=== PATIENT | male | born 1960 | race Caucasian/White ===

== ENCOUNTER 2021-06-17 17:45 | Emergency (ER) | payer OTHER, SELFPAY ==
[2021-06-17 18:11] VITALS: BP 200/133; PULSE 72; RESP 18; TEMP 36.9; O2SAT 99; BMI 25.7
[2021-06-17 21:10] VITALS: BP 189/124; PULSE 74; RESP 16; TEMP 36.8; O2SAT 100
--- NOTE | 2021-06-17 21:20 | ECG_ITS ---
Test Reason : HTN Blood Pressure : / mmHG Vent. Rate : 070 BPM Atrial Rate : 070 BPM P-R Int : 174 ms QRS Dur : 086 ms QT Int : 386 ms P-R-T Axes : 062 006 024 degrees QTc Int : 416 ms Normal sinus rhythm Normal ECG No previous ECGs available Referred By: Lucina Vale Electronically Signed By:NANDINI REED MD
--- NOTE | 2021-06-17 21:21 | ED.RECABL ---
HPI - Recheck/Abnormal Lab/Rx General Chief Complaint: Recheck/Abnormal Lab/Rx Stated Complaint: High blood pressure Time Seen by Provider: 06/17/21 21:20 Source: patient Mode of arrival: ambulatory History of Present Illness HPI narrative: Is a 61-year-old male who is a 3-4 day a week drinker of alcohol, denies cigarette use who was being seen at [facility] for underlying knee and ankle issues (previously diagnosed with gout) and at that time had his blood pressure taken and he was found to be hypertensive. He states that the healthcare worker there ?scared him? and he proceeded immediately to the emergency room as instructed. Patient denies any prior knowledge of his high blood pressure and is not on any prescription medications and denies ever having experience dizziness, headache, visual blurriness/double vision, shortness of breath/chest pain/palpitations. He also denies any swelling in either lower extremity other than his underlying joint condition. He does state that he is currently on indomethacin for his right ankle swelling. Patient denies COVID-19 vaccination. Related Data Allergies Allergy/AdvReac Type Severity Reaction Status Date / Time Penicillins Allergy Mild UNKNOWN Verified 06/17/21 18:11 penicillin V Allergy Unknown Unknown Verified 06/17/21 18:11 Review of Systems Review of Systems: Pertinent positives and negatives as stated in HPI and 10 point review of systems is otherwise negative. [facility] Past Medical History Source: nursing notes reviewed Social History Social History Advance Directives: No Advance Directives Information Provided: No Physical Exam Vital Signs: Vital Signs: Last Vital Signs Temp 98.2 F 06/17/21 22:26 Pulse 73 06/17/21 22:26 Resp 20 06/17/21 22:26 BP 112/52 L 06/17/21 22:26 Pulse Ox 100 06/17/21 22:26 BMI result Body Mass Index 25.7 VITAL SIGNS: Reviewed. GENERAL: Well developed, well nourished, in no acute distress. HEAD: Normocephalic/atraumatic EYES: PERRLA, EOMI intact without pain, no nystagmus OROPHARYNX: no oral lesions noted, posterior pharynx clear LUNGS: Normal breath sounds. No adventitious sounds or accessory muscle use. SpO2<100> CARDIOVASCULAR: Regular rate and rhythm without noted murmurs, no JVD or lower extremity edema. ABDOMEN: Soft, non-tender, non-distended with bowel sounds. MUSCULOSKELETAL: No tenderness/deformities, left knee effusion noted on gross inspection. EXTREMITIES: No cyanosis, clubbing or edema. SKIN: Inspection of the skin reveals no rashes NEUROLOGIC: Alert and oriented x 4. Strength and sensation to light touch were grossly intact x 4, otherwise nonfocal Course Course Course Narrative: This is a 61-year-old male with history and clinical presentation consistent with incidental finding of hypertension that is otherwise asymptomatic. Patient also plans to leave for [facility] and stay down there for 4 months and states he does not have a current primary care provider. Patient will be evaluated for immediate reversible causes for his current hypertension, but it is also felt to be contributed to by his alcohol use as well as indomethacin. Review of all investigations otherwise negative for acute findings. All results discussed with the patient at bedside and he was strongly encouraged to follow-up with his primary care provider in the next 2-3 days. MDM - Recheck/Abnormal Lab/Rx Lab Data Result diagrams: 06/17/21 22:12 06/17/21 22:11 Labs: Lab Results 06/17/21 06/17/21 06/17/21 Range/Units 22:06 22:11 22:12 WBC 7.6 (4.8-10.8) X10*3/uL RBC 4.98 (4.60-5.80) X10*6/uL Hgb 16.1 (14.0-18.0) g/dl Hct 45.4 (42.0-52.0) % MCV 91.2 (80.0-98.0) fL MCH 32.3 (27.0-33.0) pg MCHC 35.5 (31.0-36.0) g/dl RDW 12.5 (11.0-16.0) % Plt Count 192 (160-400) X10*3/uL MPV 9.9 (9.4-12.4) fL Immature Gran % (Auto) 0.4 (0.0-0.4) % Neut % (Auto) 69.3 (45-73) % Lymph % (Auto) 20.2 (20-40) % Woodward % (Auto) 8.2 (2-11) % Eos % (Auto) 1.5 (0-4) % Baso % (Auto) 0.4 (0-2) % Lymph # (Auto) 1.5 (1.2-4.9) X10*3/uL Woodward # (Auto) 0.6 (0.1-1.2) X10*3/uL Eos # (Auto) 0.1 (0.0-0.4) X10*3/uL Baso # (Auto) 0.0 (0.0-0.2) X10*3/uL Abs Immat Gran (auto) 0.03 (0.00-0.03) X10*3/uL Absolute Neuts (auto) 5.3 (2.0-8.3) x10*3/uL Absolute Nucleated RBC 0.000 (0.0-0.012) X10*3/uL Nucleated RBC % (auto) 0.0 (0.0-0.2) /100WBC Sodium 142 (135-145) mmol/L Potassium 4.4 (3.3-5.1) mmol/L Chloride 106 (96-108) mmol/L Carbon Dioxide 27 (22-29) mmol/L Anion Gap 13 (12-20) BUN 19 H (9-16) mg/dL Creatinine 0.94 (0.5-1.4) mg/dL Estim Creat Clear Calc 69.9 Estimated GFR > 60 Random Glucose 97 (60-115) mg/dL Calcium 9.7 (8.4-10.2) mg/dL Total Bilirubin 0.8 (0.0-1.0) mg/dL AST 30 (5-37) U/L ALT 67 H (0-40) U/L Alkaline Phosphatase 95 (39-117) U/L Total Protein 7.2 (6.5-8.0) g/dL Albumin 4.6 (3.5-5.0) g/dL TSH 3.35 (0.32-4.0) uIU/mL Urine Color YELLOW Urine Appearance CLEAR Urine pH 6.0 (5.0-8.0) Ur Specific Rumson >= 1.030 H (1.005-1.025) Urine Protein NEG (NEG-TRACE) MG/DL Urine Glucose (UA) NEG (NEG) MG/DL Urine Ketones NEG (NEG) MG/DL Urine Blood NEG (NEG) Urine Nitrite NEG (NEG) Ur Leukocyte Esterase NEG (NEG) ECG Data Attestation: I personally reviewed and interpreted this ECG as follows: Prior ECG tracings: not available for review Interpretation: Normal sinus rhythm, HR -70, no STEMI, OK/QRS/QTC are within normal limits. Discharge Plan Discharge Clinical Impression: Hypertension Patient Disposition: Home, Self-Care Instructions: Hypertension (ED), DASH Eating Plan (ED), Hypertension in the Older Adult (ED), Low-Sodium Diet (ED) Additional Instructions: Decrease alcohol intake as well as lowering salt intake. Set up a primary care provider at your earliest convenience. Return to the ER for worsening symptoms.
[2021-06-17] MEDS: hydroCHLOROthiazide 25 MG TABLET PO (21:45)
[2021-06-17 22:18] LABS: Basophils Percent Auto 0.4 % (0-2); Eosinophils Absolute Auto 0.1 X10*3/uL (0.0-0.4); Eosinophils Percent Auto 1.5 % (0-4); Hematocrit 45.4 % (42.0-52.0); Hemoglobin 16.1 g/dl (14.0-18.0); Imm Gran Abs Auto 0.03 X10*3/uL (0.00-0.03); Imm Gran Pct Auto 0.4 % (0.0-0.4); Lymphocytes Absolute Auto 1.5 X10*3/uL (1.2-4.9); Lymphocytes Percent Auto 20.2 % (20-40); MANUAL DIFF FLAG NO; Mean Corpuscular HGB Conc 35.5 g/dl (31.0-36.0); Mean Corpuscular Hemoglobin 32.3 pg (27.0-33.0); Mean Corpuscular Volume 91.2 fL (80.0-98.0); Mean Platelet Volume 9.9 fL (9.4-12.4); Monocytes Absolute Auto 0.6 X10*3/uL (0.1-1.2); Monocytes Percent Auto 8.2 % (2-11); Neutrophils Absolute Auto 5.3 x10*3/uL (2.0-8.3); Neutrophils Percent Auto 69.3 % (45-73); Platelet Count 192 X10*3/uL (160-400); Red Blood Count 4.98 X10*6/uL (4.60-5.80); Red Cell Distribution Width 12.5 % (11.0-16.0); White Blood Count 7.6 X10*3/uL (4.8-10.8)
[2021-06-17 22:26] VITALS: BP 112/52; PULSE 73; RESP 20; TEMP 36.8; O2SAT 100
[2021-06-17 22:29] LABS: Appearance Urine CLEAR; Color Urine YELLOW; Glucose Urine UA NEG (NEG); Leukocyte Esterase Urine NEG (NEG); Nitrite Urine NEG (NEG); Specific Gravity - Urine >= 1.030 (1.005-1.025); Urine Blood NEG (NEG); Urine Ketones NEG (NEG); Urine Protein NEG (NEG-TRACE)
[2021-06-17 22:48] LABS: Alanine Aminotransferase 67 U/L (0-40); Albumin Level 4.6 g/dL (3.5-5.0); Alkaline Phosphatase 95 U/L (39-117); Anion Gap 13 (12-20); Aspartate Amino Transferase 30 U/L (5-37); Bilirubin Total 0.8 mg/dL (0.0-1.0); Blood Urea Nitrogen 19 mg/dL (9-16); Calcium 9.7 mg/dL (8.4-10.2); Carbon Dioxide 27 mmol/L (22-29); Chloride 106 mmol/L (96-108); Creatinine Clr Calc Pharmacy 69.9; Estimated Glomerular Filt Rate > 60; Glucose Random 97 mg/dL (60-115); Potassium 4.4 mmol/L (3.3-5.1); Sodium 142 mmol/L (135-145); Total Protein 7.2 g/dL (6.5-8.0)
[2021-06-17 22:58] LABS: Thyroid Stimulating Hormone 3.35 uIU/mL (0.32-4.0)
--- NOTE | 2021-06-17 23:20 | PC.NURSE ---
PREVIOUSLY DOCUMENTED BLOOD PRESSURE BY ED WAS CHARTED IN ERROR. PATIENT BLOOD PRESSURE ON RECHECK BY THIS RN IS 204/121. PROVIDER AT BEDSIDE AND ORDERS FOR ADDISIONAL MEDICATION FOR HYPERTENSION THAT HAS PERSISTED.
[2021-06-17 23:22] VITALS: BP 204/121; PULSE 67; RESP 16; O2SAT 100
[2021-06-17] MEDS: hydrALAZINE HCl 10 MG TABLET 5 MG PO (23:27)
[2021-06-17 23:29] VITALS: BP 177/110; PULSE 669; RESP 16; O2SAT 100
== END 2021-06-17 23:29 | disposition home or self-care (01) ==
PROVIDERS: Emergency Provider Student in an Organized Health Care Education/Training Program
DX: I10 Essential (primary) hypertension (principal)
CPT/HCPCS: 36415; 80053; 81003; 84443; 85025; 93005; 99283; 99284

== ENCOUNTER 2022-08-16 12:18 | Outpatient (REF) | payer OTHER, SELFPAY ==
[2022-08-16 14:57] LABS: Cholesterol 239 mg/dL; HDL Cholesterol 56 mg/dL; LDL Cholesterol Calculated 163 mg/dl; Triglycerides 100 mg/dL; Uric Acid 8.4 mg/dL (3.4-7.0)
== END 2022-08-16 12:19 | disposition home or self-care (01) ==
LOC: HO.10HDL 12:18
PROVIDERS: Visit Provider Internal Medicine
DX: Z00.00 Encounter for general adult medical examination without abnormal findings (principal); Z20.2 Contact with and (suspected) exposure to infections with a predominantly sexual mode of transmission
CPT/HCPCS: 36415; 80061; 84550

== ENCOUNTER 2023-11-14 11:08 | Outpatient (REF) | payer OTHER, SELFPAY ==
--- NOTE | ~2023-11-14 | XR_ITS ---
EXAMINATION: XR ANKLE, LEFT CLINICAL INFORMATION: Gout. OA. COMPARISON: Left foot films dated 11/15/2016. TECHNIQUE: AP, lateral, and mortise views of the left ankle. FINDINGS: Mild bimalleolar soft tissue swelling, more prominent on the lateral aspect in the medial aspect. No underlying acute fracture or dislocation. Small ankle joint effusion is suspected. The ankle mortise is symmetric and intact. No joint or soft tissue calcifications seen. Minimal spurring in the tibiotalar joint. XR/XR ankle LT min 3V IMPRESSION: * Mild bimalleolar soft tissue swelling and small ankle joint effusion. * No acute fracture or dislocation. * No evidence of erosive arthropathy. Minimal degenerative change in the medial tibiotalar joint.
[2023-11-14 13:14] LABS: MANUAL DIFF FLAG NO
[2023-11-14 13:39] LABS: Basophils Percent Auto 0.8 % (0-2); Eosinophils Absolute Auto 0.1 X10*3/uL (0.0-0.4); Eosinophils Percent Auto 2.5 % (0-4); Hemoglobin 14.5 g/dl (14.0-18.0); Imm Gran Abs Auto 0.02 X10*3/uL (0.00-0.03); Imm Gran Pct Auto 0.4 % (0.0-0.4); Lymphocytes Absolute Auto 1.1 X10*3/uL (1.2-4.9); Lymphocytes Percent Auto 23.8 % (20-40); Mean Corpuscular HGB Conc 35.4 g/dl (31.0-36.0); Mean Corpuscular Hemoglobin 31.5 pg (27.0-33.0); Mean Corpuscular Volume 88.9 fL (80.0-98.0); Mean Platelet Volume 10.7 fL (9.4-12.4); Monocytes Absolute Auto 0.5 X10*3/uL (0.1-1.2); Neutrophils Absolute Auto 2.9 x10*3/uL (2.0-8.3); Neutrophils Percent Auto 61.5 % (45-73); Platelet Count 286 X10*3/uL (160-400); Red Blood Count 4.61 X10*6/uL (4.60-5.80); Red Cell Distribution Width 12.8 % (11.0-16.0); White Blood Count 4.7 X10*3/uL (4.8-10.8)
[2023-11-14 14:01] LABS: Alanine Aminotransferase 28 U/L (0-40); Albumin Level 4.6 g/dL (3.5-5.0); Alkaline Phosphatase 97 U/L (39-117); Anion Gap 15 (12-20); Aspartate Amino Transferase 18 U/L (5-37); Bilirubin Total 0.7 mg/dL (0.0-1.0); Blood Urea Nitrogen 16 mg/dL (9-16); Calcium 9.9 mg/dL (8.4-10.2); Carbon Dioxide 22 mmol/L (22-29); Chloride 107 mmol/L (96-108); Cholesterol 186 mg/dL (<200); Estimated Glomerular Filt Rate > 60; Glucose Fasting 99 mg/dL (60-99); HDL Cholesterol 48 mg/dL (>40); LDL Cholesterol Calculated 116 mg/dL (<100); Potassium 4.3 mmol/L (3.3-5.1); Sodium 140 mmol/L (135-145); Triglycerides 111 mg/dL (<150)
[2023-11-14 14:19] LABS: Uric Acid 6.9 mg/dL (3.4-7.0)
[2023-11-14 14:25] LABS: Erythrocyte Sedimentation Rate 12 MM/HR (0-15)
== END 2023-11-14 11:09 | disposition home or self-care (01) ==
LOC: HO.10HDL 11:08
PROVIDERS: Visit Provider Internal Medicine
DX: I10 Essential (primary) hypertension (principal); E78.00 Pure hypercholesterolemia, unspecified; M10.9 Gout, unspecified; R60.0 Localized edema
CPT/HCPCS: 36415; 73610; 80053; 80061; 84550; 85025; 85652; 86140

== ENCOUNTER 2024-05-07 14:18 | Outpatient (REF) | payer OTHER, SELFPAY ==
--- NOTE | ~2024-05-07 | XR_ITS ---
EXAMINATION: XR CERVICAL SPINE CLINICAL INFORMATION: NECK PAIN COMPARISON: None available. TECHNIQUE: 5 views of cervical spine FINDINGS: No fracture. No subluxation. No focal bone lesion or bone destruction. Multilevel degenerative spondylosis of the spine. Multilevel disc height narrowing, endplate spurring and facet joint arthrosis. There is mild narrowing of the left neural foramina at C4-C5 and on the right at C3-C4 by facet joint spurring. Posterior spurs slightly encroaching into the right neural foramina C5-C6. XR/XR cervical spine 5V IMPRESSION: 1. No acute abnormality. 2. Multilevel degenerative spondylosis of the spine. 3. Mild narrowing of the neural foramina at C3-C4, C4-C5 and C5-C6. Electronically signed by: Charles Diaz MD 05/08/2024 05:40 PM [facility] ALBRIGHT
[2024-05-07 15:59] LABS: Alanine Aminotransferase 48 U/L (0-40); Albumin Level 4.7 g/dL (3.5-5.0); Alkaline Phosphatase 106 U/L (39-117); Anion Gap 12 (12-20); Aspartate Amino Transferase 24 U/L (5-37); Bilirubin Total 0.6 mg/dL (0.0-1.0); Blood Urea Nitrogen 18 mg/dL (9-16); C Reactive Protein 0.33 mg/dL (< or = 0.50); Calcium 9.8 mg/dL (8.4-10.2); Carbon Dioxide 26 mmol/L (22-29); Chloride 104 mmol/L (96-108); Estimated Glomerular Filt Rate > 60; Glucose Random 92 mg/dL (60-115); Potassium 4.4 mmol/L (3.3-5.1); Sodium 138 mmol/L (135-145); Uric Acid 6.7 mg/dL (3.4-7.0)
[2024-05-07 16:05] LABS: Prostate Specific Antigen 0.51 ng/mL (<0.05-4.0)
== END 2024-05-07 14:19 | disposition home or self-care (01) ==
LOC: HO.LAB 14:18
PROVIDERS: PCP Internal Medicine; Visit Provider Internal Medicine
DX: M54.2 Cervicalgia (principal); E78.00 Pure hypercholesterolemia, unspecified; Z12.5 Encounter for screening for malignant neoplasm of prostate; M10.9 Gout, unspecified
CPT/HCPCS: 36415; 72050; 80053; 82550; 84153; 84550; 86140

== ENCOUNTER 2025-03-31 15:27 | Outpatient (AMB) | payer OTHER, MEDICARE, SELFPAY ==
--- OUTSIDE RECORDS SUMMARY | 2021-05-19 14:50 | XMS_ITS | Encounter Summary ---
Author Organization [facility] Address [address] [place] [address] Phone Care Team Providers Care General Administrator Name Role Phone Pcp, Unknown Primary Care Provider Unavailabl e Encounter Details Date Type Department Care Team (Late st Contact Info) Description 05/19/2021 1:50 PM EST Hospital Encounter [facility] [address] [place] [id number] May Harrell CNP [address] [place] [address] Social History Tobacco Use Types Packs/Day Years Used Date Smoking Tobacco: Never Smokeless Tobacco: Never Alcohol Use Standard Drinks/Week Comments Yes 0 (1 standard drink = 0.6 oz pur e alcohol) 8-10 Education Answer Date Recorded Are you interested in more education? Not on karen e 10/08/2022 Are you concerned about learning? Not on file 10/08/2022 No 10/08/2022 No 10/08/2022 Digital Access Answer Date Recorded No 11/05/2022 No 11/05/2022 No 11/05/2022 Reliable internet access at home? Not on file 11/05/2022 Device with a working camera? Not on file Sex and Gender Information Value Date Recorded Sex Assigned at Not on file Legal Sex Male 1:27 PM EST Gender Identity Not on file Sexual Orientation Not on file documented as of this encounter Plan of Treatment Not on file documented as of this encounter Procedures Procedure Name Priority Date/Time Associated Diagnosis Comments XR ANKLE 3 OR MORE VIEWS (RIGHT) Urgent/patient waiting 05/19/2021 1:58 PM EST Pain and swelling of right ankle documented in this encounter Results * XR ANKLE 3 OR MORE VIEWS (RIGHT) (05/19/2021 1:58 PM EST) Anatomical Region Laterality Modality Ankle Right Computed Radiogr aphy 05/19/2021 2:01 PM EST Impressions 05/19/2021 2:03 PM EST Diffuse soft tissue swelling as above, greater laterally. No acute displaced fracture or dislocation. Narrative 05/19/2021 2:03 PM EST XR ANKLE 3 OR MORE VIEWS (RIGHT) COMPARISON: None. FINDINGS: There is mild diffuse soft tissue swelling about the ankle, tracking down the hindfoot, greater laterally. Ankle mortise is maintained. No acute displaced fracture seen. No ankle effusion. Preserved alignment. Tiny calcaneal spurs. Procedure Note Talia Granados MD - 05/19/2021 XR ANKLE 3 OR MORE VIEWS (RIGHT) COMPARISON: None. FINDINGS: There is mild diffuse soft tissue swelling about the ankle, tracking downthe hindfoot, greater laterally. Ankle mortise is maintained. No acutedisplaced fracture seen. No ankle effusion. Preserved alignment. Tinycalcaneal spurs. IMPRESSION: Diffuse soft tissue swelling as above, greater laterally. No acutedisplaced fracture or dislocation. May Harrell LOT BOSS IMG XR LOWER EXTREMITY Gilda l Result documented in this encounter Visit Diagnoses Not on filedocumented in this encounter Care Teams General Administrator Relationship Specialty Start Date End Date Pcp, Unknown PCP - General 05/19/21 documented as of this encounter Additional Source Comments The information contained in this document represents components of the legal health record. It is not the complete legal health record.[facility]
--- OUTSIDE RECORDS SUMMARY | 2021-06-18 15:13 | XMS_ITS | Encounter Summary ---
Author Organization [facility] Address [address] [place] [address] Phone Care Team Providers Care Medical Records Secretary Name Role Phone Pcp, Unknown Primary Care Provider Unavailabl e Encounter Details Date Type Department Care Team (Late st Contact Info) Description 06/18/2021 2:13 PM EST Hospital Encounter [facility] [address] [place] [phone] Molly Jenkins FNP [address] [place] [address] [email or web address] Social History Tobacco Use Types Packs/Day Years [...] Name Priority Date/Time Associated Diagnosis Comments XR KNEE 4 OR MORE VIEWS (LEFT) Urgent/patient waiting 06/18/2021 2:23 PM EST Knee effusion, left documented in this encounter Results * XR KNEE 4 OR MORE VIEWS (LEFT) (06/18/2021 2:23 PM EST) Anatomical Region Laterality Modality Knee Left Computed Radiogr aphy 06/18/2021 2:27 PM EST Impressions 06/18/2021 2:29 PM EST No fracture or dislocation. Moderate suprapatellar knee effusion. Narrative 06/18/2021 2:29 PM EST XR KNEE 4 OR MORE VIEWS (LEFT) Procedure Note Ousmane Wilson MD, PhD - 06/18/2021 XR KNEE 4 OR MORE VIEWS (LEFT) IMPRESSION: No fracture or dislocation. Moderate suprapatellar knee effusion. us Molly Jenkins WANT AD SUPERVISOR IMG XR LOWER EXTREMITY Gilda l Result documented in this encounter Visit Diagnoses Not on filedocumented in this encounter Care Teams Medical Records Secretary Relationship Specialty Start Date End Date Pcp, Unknown PCP - General 05/19/21 documented as of this encounter Additional Source Comments The information contained in this document represents components of the legal health record. It is not the complete legal health record.[facility]
--- NOTE | 2025-03-31 14:02 | A.OFFPC_ITS ---
Vital Signs 03/31/25 15:51 03/31/25 16:04 Height 5 ft 3.27 in Weight 70.307 kg BMI 27.2 BP 146/80 H 136/80 Blood Pressure Location Lt brachial Position Sitting Respiration 18 Pulse 86 Pulse Source Pulse Oximeter Temp 98.9 F Temp Source Temporal Artery Scan Pulse Oximetry (%) 98 Oxygen Delivery Method Room Air Intake Visit Reasons: ERNESTO/Johnny Information Security Engineer Required: No Accompanied by: Self / Same As Patient Allergies Penicillins Allergy (Mild, Verified 03/31/25 14:03) UNKNOWN penicillin V Allergy (Unknown, Verified 03/31/25 14:03) Unknown Tobacco use date assessed: 03/31/25 Fall risk assessment: No Falls in past year Last assessed Fall Risk: 03/31/25 Dental Screening Dental Screen Date: 03/31/25 Did you have a dental visit in the last 12 months?: No Did you have a dental problem in the last 6 months where you did not have access to dental care?: No Was dental information given to patient?: Patient has dentist HPI HPI Comments History of Present Illness Details 64-year-old male with history of gout, h ypertension, hyperlipidemia, colon cancer presenting to the office today for management of chronic conditions and to establish care. He is a former patient of Dr. Turner, last seen 4 months ago. Hypertension-blood pressure on recheck 136/80. Compliant with lisinopril 30 mg daily and amlodipine 5 mg daily Gout-compliant with allopurinol 200 mg daily. Does not recall his most recent flare. Most recent uric acid level 6.7. He does continue drinking a 6 pack of beer 3 days per week. Was not aware that this is excessive Hyperlipidemia-last LDL 116. Compliant with atorvastatin 10 mg daily. Does not always follow healthy, low-fat diet. Colon cancer- 18 years ago with h/o chemo with aidan. S/p resection with anastomosis. Overdue for colonoscopy, last colonoscopy 2013. Dr. De Luna. No change in bowel habits, hematochezia, unintentional weight loss Concerns: None Health maintenance: Overdue for colonoscopy as above Due for screening PSA ROS: General: No fevers, malaise, unintentional weight loss HEENT: No blurred vision, diplopia. No sore throat, nasal congestion, rhinorrhea, sinus pain, ear pain Cardiovascular: No chest pain, palpitations, or leg edema Respiratory: No shortness of breath, wheezing, cough GI: No abdominal pain, nausea, vomiting, diarrhea, constipation, melena, hematochezia : No dysuria, hematuria, increased urinary frequency, decreased urinary output MSK: No myalgia, back pain Neuro: No headaches, weakness, paresthesias Skin: No rashes or lesions EXAM: Constitutional - Awake and Alert, No apparent distress Eyes - PERRL Cardiovascular - S1S2, RRR, No edema Respiratory - Normal lung expansion, Normal respiratory effort, No respiratory distress, CTA bilaterally Extremities - no calf tenderness bilaterally, no swelling Skin - Warm/Dry Neurological - Alert & oriented x3 Psychological - Appropriate affect PFSH Medical History (Updated 03/31/25 @ 16:13 by LAURA Ugalde) Colon cancer Hypertension Gout HLD (hyperlipidemia) Surgical History (Updated 03/31/25 @ 15:58 by LAURA Ugalde) S/P colon resection Social History Housing: House Patient Tobacco Use Status: Former Tobacco user Years Smoked: 30 years-quit 18 years ago e-Cigarette/Vaping Use: Never Used service: No Current occupational status: employed Current occupation: [employer] Questionnaire PHQ-9 Over the last 2 weeks, how often have you been bothered by any of the following problems? 1. Little interest or pleasure in doing things: not at all 2. Feeling down, depressed, or hopeless: not at all 3. Trouble falling or staying asleep, or sleeping too much: several days 4. Feeling tired or having little energy: not at all 5. Poor appetite or overeating: not at all 6. Feeling bad about yourself - or that you are a failure or have let yourself or your family down: not at all 7. Trouble concentrating on things, such as reading the newspaper or watching television: not at all 8. Moving or speaking so slowly that other people could have noticed. Or the opposite - being so fidgety or restless that you have been moving around a lot more than usual: not at all 9. Thoughts that you would be better off or of hurting yourself in some way: not at all Total score: 1 Source: Developed by Drs. Neftali Hubbard, Carolyn Winkler, Jeyson Lea and colleagues, with an educational gnoc from [employer]. Thrive Questionnaire Date Thrive assessed: 03/31/25 I am a: Patient What is your living situation today?: I have a steady place to live Within the past 12 months, did the food you bought not last and you didn't have the money to get more?: Never true Within the past 12 months, did you worry whether your food would run out before you got money to buy more?: Never true Do you have trouble paying for medicines?: No Do you have trouble getting transportation to medical appointments?: No Do you have trouble paying your heating and electricity bill?: No Do you have trouble taking care of your child, family member or friend?: No Do you have trouble with day-to-day activities such as bathing, preparing meals, shopping, managing finances, etc.?: No Are you currently unemployed and looking for a job?: No Are you interested in more education?: No THRIVE Score: 0 AUDIT C Alcohol Use Questionnaire (AUDIT-C) 1. How often do you have a drink containing alcohol?: 2-3 times a week 2. How many drinks containing alcohol do you have on a typical day when you are drinking?: 5 or 6 Total Score: 5 CIRO-7 AMB Questionnaire CIRO-7 Date CIRO - 7 assessed: 03/31/25 Feeling nervous, anxious, or on edge: 0 = Not at all Not being able to stop or control worryin = Not at all Worrying too much about different things: 0 = Not at all Trouble relaxin = Not at all Being so restless that it is hard to sit still: 0 = Not at all Becoming easily annoyed or irritable: 0 = Not at all Feeling afraid as if something awful might happen: 0 = Not at all Total CIRO-7 score (0-4 normal; 5-9 mild; 10-14 moderate; 15-21 severe): 0 Source: Developed by Drs. Neftali Hubbard, Carolyn Winkler, Jeyson Lea and colleagues, with an educational ngoc from [employer]. Physical exam (Primary Care) Vital Signs: Last Vital Signs Temp 98.9 F 03/31/25 15:51 Pulse 86 03/31/25 15:51 Resp 18 03/31/25 15:51 BP 136/80 03/31/25 16:04 Pulse Ox 98 03/31/25 15:51 Oxygen Delivery Method Room Air 03/31/25 15:51 BMI result Body Mass Index 27.2 Tobacco/Smoking Status: Tobacco use Status Tobacco use date assessed 03/31/25 03/31/25 14:03 Patient Tobacco Use Status Former Tobacco user 03/31/25 15:54 e-Cigarette/Vaping Use Never Used 03/31/25 15:54 PHQ-9: PHQ-9 Score PHQ-9: Total score 1 03/31/25 15:55 Thrive Assessment: Date of Thrive Assessment Date Thrive assessed 03/31/25 03/31/25 15:55 Coding Level of Care Code New Pt Level 4 (35852) Complex EM visit Add On G2211 Diagnoses Hypertension I10 HLD (hyperlipidemia) E78.5 Gout M10.9 Colon cancer C18.9 Assessment & Plan Assessment & Plan (1) Hypertension: Code(s): I10 - Essential (primary) hypertension Category: Medical Plan: Controlled on recheck. Continue lisinopril and amlodipine as prescribed. Low- sodium diet. Evaluate renal function electrolyte levels (2) HLD (hyperlipidemia): Code(s): E78.5 - Hyperlipidemia, unspecified Category: Medical Plan: Lipid panel ordered. Continue atorvastatin (3) Gout: Code(s): M10.9 - Gout, unspecified Category: Medical Plan: No recent flare. Check uric acid level. Continue allopurinol. Consult on alcohol use (4) Colon cancer: Code(s): C18.9 - Malignant neoplasm of colon, unspecified Category: Medical Plan: Last colonoscopy 11 years ago, due every 5 years. Referred back to Dr. De Luna. Plan Follow-up in the office in 6 months. Labs to be completed today as well as several days prior to next visit. Orders: Orders Lipid Panel Today C18.9 - Malignant neoplasm of colon, unspecified, E78.5 - Hyperlipidemia, unspecified, I10 - Essential (primary) hypertension, M10.9 - G out, unspecified Liver Panel Today C18.9 - Malignant neoplasm of colon, unspecified, E78.5 - Hyperlipidemia, unspecified, I10 - Essential (primary) hypertension, M10.9 - Gou t, unspecified Uric Acid Today C18.9 - Malignant neoplasm of colon, unspecified, E78.5 - Hyperlipidemia, unspecified, I10 - Essential (primary) hypertension, M10.9 - Gout, unspecified Complete Blood Count Auto Diff Today C18.9 - Malignant neoplasm of colon, unspecified Basic Metabolic Panel 6 Months E78.5 - Hyperlipidemia, unspecified, I10 - Essential (primary) hypertension Lipid Panel 6 Months E78.5 - Hyperlipidemia, unspecified, I10 - Essential (primary) hypertension Basic Metabolic Panel Today C18.9 - Malignant neoplasm of colon, unspecified, E78.5 - Hyperlipidemia, unspecified, I10 - Essential (primary) hypertension, M10.9 - Gout, unspecified Prostate Specific Antigen Today C18.9 - Malignant neoplasm of colon, unspecified, E78.5 - Hyperlipidemia, unspecified, I10 - Essential (primary) hypertension, M10.9 - Gout, unspecified Liver Panel 6 Months E78.5 - Hyperlipidemia, unspecified, I10 - Essential (primary) hypertension Referrals Gastroenterology Referral C18.9 - Malignant neoplasm of colon, unspecified
[2025-03-31 15:51] VITALS: BP 146/80; PULSE 86; RESP 18; TEMP 37.2; O2SAT 98; BMI 27.2
[2025-03-31 16:04] VITALS: BP 136/80
--- OUTSIDE RECORDS SUMMARY | 2025-03-31 19:42 | XMS_ITS | Patient Health Record ---
Author Organization [facility] Address [address] [place] [address] Care Team Providers Care Mobility Architect Manager Name Role Phone Johnny (RETIRED) Marc MELCHOR Primary Care Provide Ortiz Avilez Jr Unavailable Allergies Allergen (clinical drug ingredient) Drug/Non Drug Allergy documented on EMR Reaction Allergy Type Onset Date Status Penicillin Unknown Drug Allergy Active Reason For Referral No Information Medications Medication SIG (Take, Route, Fr equency, Duration) Notes Start Date End Date Status MoviPrep 100 GM as directed before c olonoscopy Orally; Duration: 1 dose 05/14/2015 Active Problems Problem Type SNOMED Code ICD Code Onset Dates Problem Status W/U Status Risk Notes Problem Colon cancer screening (337003942) Colon cancer screening (Z12.11) Active confirmed Problem Gastro-esophagea l reflux disease without esophagitis (410676185) Gastro-esophage al reflux disease without esophagitis (K21.9) Active confirmed Problem Benign neoplasm of small intestine (01200152) Tubular adenoma of small intestine (D13.30) Active confirmed Plan Of Treatment Future Test Test Name Order Date COLONOSCOPY 06/18/2011 COLONOSCOPY 05/14/2015 Insurance Providers Payer Name Payer Address Payer Phone Subscriber Number Group Number Insured Name Patient Relationship to Insured Coverage Start Date Coverage End Date [employer] [address] LEESA ROBERTS [id number] JAYLAN FAIR Self - patient is the insured Medical (General) History Medical History History ICD Code gastroesophageal reflux disease colon cancer small bowel tubular adenoma with high-gr pamela dysplasia Denies AR,DM,CVA,Lung disease,renal dise ase Surgical History Surgery Date(Month/Year) extended right ileocolectomy small bowel resection as above
--- OUTSIDE RECORDS SUMMARY | 2025-03-31 19:42 | XMS_ITS | Clinical Summary ---
Author Organization [facility] Address [address] [place] [address] Care Team Providers Care [employer] Name Role Phone Marc Turner Primary Care Provider [phone] Allergies Active Allergy Reactions Criticality Noted Date Comments Penicillins Rash Low 05/19/2021 Reaction during child zee, cannot recall exact reaction, believes it is a rash. Medications lisinopriL (PRINIVIL,ZESTR IL) 10 mg tablet Take 10 mg by mouth 2 times a day. 3 Active traMADoL (ULTRAM) 50 mg tablet Take 1-2 tablets (50-100 mg total) by mouth every 6 hours as needed (pain). Max daily dose 8 tablets 30 tablet 3 Active Additional Information Patient not taking.Reported on 08/05/2022 Active Problems No known active problems Family History Medical History Relation Name Comments Cancer Father Hypertension Father Arthritis Mother Cancer Mother Hypertension Mother Relation Name Status Comments Brother 1 Brother 2 Alive Brother 3 Alive Brother 4 Alive Brother 5 Alive Father Mother Alive Sister 1 Sister 2 Alive Social History Tobacco Use Types Packs/Day Years Used Date Smoking Tobacco: Former Cigarettes 1 - 2018 Smokeless Tobacco: Never Tobacco Cessation:Counseling Given: Not Answered Alcohol Use Standard Drinks/Week Comments Yes 15 (1 standard drink = 0.6 oz pu re alcohol) 15 weekly Sex and Gender Information Value Date Recorded Sex Assigned at Not on file Legal Sex Male 2:23 PM EST Gender Identity Not on file Sexual Orientation Not on file 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 on file Not on file Not on file Last Filed Vital Signs Vital Sign Reading Time Taken Comments Blood Pressure 148/96 07/26/2022 1:00 PM EST Pulse 58 07/26/2022 1:00 PM EST Temperature - - Respiratory Rate 18 07/26/2022 12:45 PM EST Oxygen Saturation 96% 07/26/2022 1:00 PM EST Inhaled Oxygen Concentration - - Weight 72.1 kg (159 lb) 07/26/2022 10:17 AM EST Height 165.1 cm (5' 5 ) 07/26/2022 10:17 AM EST Body Mass Index 26.46 07/26/2022 10:17 AM EST Plan of Treatment Health Maintenance Due Date Last Done Comments Cologuard 1960 Colon Cancer Screening 1960 Colonoscopy 1958 FOBT / Fit Test 1958 Hepatitis C Screening 1958 Sigmoidoscopy 1958 DTaP,Tdap,and Td Vaccines (1 - Tdap) 1980 CT Lung Cancer Screening (Baseline) 2008 Pneumococcal Vaccine: 50+ Ye ars (1 of 1 - PCV) 2008 Zoster Vaccines (1 of 2) 2008 Alcohol/Substance Use Screening 06/12/2024 Depression Screening and Follow-Up 06/12/2024 Health Care Proxy Review 06/12/2024 Social Drivers of Health Maru ual Screening 06/12/2024 COVID-19 Vaccine (1 - 2024-2 6 season) 2025 Influenza Vaccine (#1) 2025 RSV Vaccine (60+ years old a nd patients) (1 - 1-dose 75+ series) 2033 Hepatitis B Vaccines Aged Out No long er eligible based on patient's age to complete this topic Insurance [facility] Advance Directives * Presumed Full Code (Latest Code Status on File) Date Activated Date Inactivated Comments 07/26/2022 12:18 PM 07/27/2022 2:46 AM Care Teams [employer] Relationship Specialty Start Date End Date Marc Turner [address] [place] [address] [place] [address] PCP - General Internal Medicine 07/06/22
--- OUTSIDE RECORDS SUMMARY | 2025-03-31 19:42 | XMS_ITS | Clinical Summary ---
Author Organization [facility] Address [address] [place] [phone] Phone Care Team Providers Care Chemical Handler Name Role Phone Pcp, Unknown Primary Care Provider Unavailabl e Allergies Active Allergy Reactions Criticality Noted Date Comments Penicillins Rash Low 05/19/2021 Reaction during child zee, cannot recall exact reaction, believes it is a rash. Medications indomethacin (INDOCIN) 25 MG capsule Take 1 capsule (25 mg total) by mouth 3 (three) times a day with meals. 30 capsule 1 Active naproxen (NAPROSYN) 500 MG tablet Take 1 tablet (500 mg total) by mouth 2 (two) times a day for 3 days. Then twice daily as needed for pain, inflammation 20 tablet 2 Active Active Problems No known active problems Immunizations No known immunizations Social History Tobacco Use Types Packs/Day Years [...] on file Sexual Orientation Not on file Last Filed Vital Signs Vital Sign Reading Time Taken Comments Blood Pressure 177/126 06/18/2021 2:02 PM EST Pulse 85 06/18/2021 2:02 PM EST Temperature 36.7 C (98 F) 06/18/2021 2:02 PM EST Respiratory Rate 18 06/18/2021 2:02 PM EST Oxygen Saturation 99% 06/18/2021 2:02 PM EST Inhaled Oxygen Concentration - - Weight - - Height - - Body Mass Index - - Plan of Treatment Health Maintenance Due Date Last Done Comments Adult Td,Tdap Booster 1960 DEPRESSION SCREENING 1970 HEPATITIS C SCREENING 1976 COLOGUARD 2003 COLONOSCOPY 2003 COLORECTAL CANCER SCREENING 2003 FIT TEST 2003 FOBT 2003 SIGMOIDOSCOPY 2003 VIRTUAL COLONOSCOPY 2003 PNEUMOCOCCAL VACCINES (50+ y ears) (1 of 1 - PCV) 2008 ZOSTER VACCINES (1 of 2) 2008 INFLUENZA VACCINE (#1) 2025 COVID-19 VACCINE (1 - 2024-2 6 season) 2025 LIPID PANEL 05/19/2026 05/19/2021 RSV VACCINE (1 - 1-dose 75+ series) 2033 SMOKING STATUS SCREENING (On ce After 26 Yrs) Completed 06/18/2021 HEPATITIS A VACCINES Aged Out No long er eligible based on patient's age to complete this topic HIB VACCINES Aged Out No longer eligi ble based on patient's age to complete this topic MENINGOCOCCAL VACCINES (ACWY) Aged Out No longer eligible based on patient's age to complete this topic MENINGOCOCCAL VACCINES (B) Aged Out N o longer eligible based on patient's age to complete this topic Medical Devices Not on file Procedures Procedure Name Priority Date/Time Associated Diagnosis Comments LIPID PANEL Routine 05/19/2021 1:48 PM EST Hypertension, unspecified type from Last 3 Months or Most Recently Relevant to Health Maintenance Results * (ABNORMAL) Lipid panel (05/19/2021 1:48 PM EST) HDL 49 mg/dL [facility] Comment: Interpretation <40 mg/dL: Low HDL cholesterol (major risk factor for CHD) Greater than or equal to 60 mg/dL: High HDL cholesterol ( negative risk factor for CHD) HDL - cholesterol is affected by a number of factors, e.g. smoking, excerise, hormones, sex and age. CHOLESTEROL 233 0 - 240 mg/dL [facility] TRIGLYCERIDES 169(H) 30 - 160 mg/dL [facility] LDL 150(H) 50 - 129 mg/dL [facility] Comment: LDL levels in terms of risk for coronary heart disease: <100 mg/dL: Optimal 100-129 mg/dL: Near or above optimal 130-159 mg/dL: Borderline high 160-189 mg/dL: High >190 mg/dL: Very High CARDIAC RISK RATIO 4.8 3.4 - 5.0 [facility] Blood 05/19/2021 1:48 PM EST 05/19/2021 7:14 PM EST May Harrell [employer] LAB BLOOD ORDERABLES Final Result Performing Organization Address City/State/[facility] Co de Phone Number [address] [phone] from Last 3 Months or Most Recently Relevant to Health Maintenance Insurance UNITED PPO UNITED PPO UNITED PPO UNITED PPO UNITED PPO UNITED PPO UNITED PPO UNITED PPO [facility] Care Teams Chemical Handler Relationship Specialty Start Date End Date Pcp, Unknown PCP - General 05/19/21 Additional Source Comments The information contained in this document represents components of the legal health record. It is not the complete legal health record.[facility]
== END 2025-03-31 16:08 | disposition home or self-care (01) ==
LOC: HO.HMCHD 15:28
PROVIDERS: PCP Internal Medicine; Visit Provider Physician Assistant
DX: I10 Essential (primary) hypertension (principal); E78.5 Hyperlipidemia, unspecified; M10.9 Gout, unspecified; C18.9 Malignant neoplasm of colon, unspecified